=== PATIENT | female | born 1930 | race Caucasian/White ===

== ENCOUNTER → 2016-04-28 | Outpatient (CLI) | payer OTHER, MEDICARE | END | disposition home or self-care (01) | DX: R13.10 Dysphagia, unspecified (principal); R05 Cough | CPT/HCPCS: 92611 GN; G8996 GN; G8997 GN; G8998 GN ==

== ENCOUNTER → 2016-05-25 | Outpatient (CLI) | payer OTHER, MEDICARE ==
[~2016-05-25] VITALS: Ht 154.9 cm; Wt 48.1 kg
[~2016-05-25] MED LIST: CALCIUM PO; COD LIVER OIL1 EACH PO; MULTIVITAMIN1 EAC2 PO; VITAMIN D PO; [UNRECOGNIZED DRUG - REMARK] PO
== END | disposition home or self-care (01) ==
LOC: AMB 08:06
PROC: 0DB38ZX Excision of Lower Esophagus, Via Natural or Artificial Opening Endoscopic, Diagnostic (ICD-10-PCS; principal; 2016-05-25)
DX: R13.10 Dysphagia, unspecified (principal); K44.9 Diaphragmatic hernia without obstruction or gangrene; K21.0 Gastro-esophageal reflux disease with esophagitis; Z91.018 Allergy to other foods; K90.41 Non-celiac gluten sensitivity; Z85.828 Personal history of other malignant neoplasm of skin
CPT/HCPCS: 88305